=== PATIENT | female | born 1960 | race Caucasian/White ===

== ENCOUNTER → 2016-05-17 | Day surgery (SDC) | payer OTHER ==
[~2016-05-17] VITALS: Ht 157.5 cm; Wt 92.1 kg
[~2016-05-17] MED LIST: ACETAMINOPHEN/HYDROcodone 325 MG/5 MG TAB PO PRN; BUPIVACAINE HCL PF 0.5% 30 ML VIAL ONE; CEPH-460 PO; DO NOT ADM ANY ANTICOAGULANT DRUGS XX PRN; HYDR-3288 PO; INSULIN HUMAN REGULAR 1,000 UNITS/10 ML VIAL SQ PRN; LACTATED RINGER'S 1000 ML INJ 1,000 ML IV ONE; LACTATED RINGER'S 1000 ML IV SCH; LIDOCAINE 1%/EPINEPHrine 1:100,000 SOLN 30 ML VIAL ONE; LIDOCAINE HCL 2% 50 ML VIAL ONE; LISI-519 PO; MEPERIDINE HCL 50 MG/ML VIAL IM PRN; METOPROLOL TARTRATE 25 MG TAB PO PRN; MOBI7.5T PO; NEOSTIGMINE 3 MG/3 ML SYR IV ONE; ONDANSETRON HCL 4 MG/2 ML VIAL IV PUSH ONE; PHENYLEPH/NS 1000 MCG/10 ML SYR IV ONE; PRAV20TA2 PO; PROPOFOL 200 MG/20 ML AMP IV ONE; SODIUM CHLORID 0.9% 500 ML IV SCH; ceFAZolin 1,000 MG/NS 100 ML IV SCH; ePHEDrine/NS 25 MG/5 ML SYR IV ONE
[2016-05-17 07:40] VITALS: BP 175/91; PULSE 84; RESP 18; TEMP 98.6; O2SAT 98
[2016-05-17 08:07] LABS: AUTOMATED NEUTROPHIL # 2.3 TH/MM3 (1.8-7.7); BASOPHIL % 0.6 % (0.0-2.0); EOSINOPHIL # 0.1 TH/MM3 (0-0.4); EOSINOPHIL % 1.9 % (0.0-4.0); HEMO FLAGS DIFF FINAL; LYMPH % 29.1 % (9.0-44.0); LYMPHOCYTE # 1.1 TH/MM3 (1.0-4.8); MEAN CELL VOLUME 96.9 FL (80.0-100.0); MEAN CORPUSCULAR HGB CONC 34.1 % (32.0-36.0); MONO % 7.4 % (0.0-8.0); PLATELET COUNT 211 TH/MM3 (150-450); RED BLOOD COUNT 4.02 MIL/MM3 (4.00-5.30); RED CELL DISTRIBUTION WIDTH 14.2 % (11.6-17.2); WHITE BLOOD COUNT 3.7 TH/MM3 (4.0-11.0)
--- NOTE | 2016-05-17 09:00 | EKG ---
Date Performed: 05/17/2016 Time Performed: 08:17:00 PTAGE: 55 years EKG: Sinus rhythm NORMAL ECG COMPARED TO PRIOR ELECTROCARDIOGRAM, Rate has slowed. PREVIOUS TRACING : 10/07/2011 18.06 DOCTOR: Percy Khoury Interpretating Date/Time 05/17/2016 08:58:11
--- NOTE | 2016-05-17 11:22 | HHI.PR ---
Immediate Post Op Note Procedure Date: May 17, 2016 Pre Op Diagnosis: (1) TFCC (triangular fibrocartilage complex) injury Post Op Diagnosis: Surgeon: Gary Urias III Tractor Expert(s): jose Procedure: right wrist diagnostic arthroscopy with TFCC repair and thermal shrinkage; distal ulna debridement Anesthesia: General, Local Drains: None IVF Tourniquet time (min at mmHg) 74min @ 200mm Hg Patient to: PACU Patient Condition: Good Gary Urias III, MD May 17, 2016 11:22
[2016-05-17 12:44] VITALS: BP 129/61; PULSE 85; RESP 16; TEMP 98.1; O2SAT 96
--- NOTE | 2016-05-18 19:09 | MP ---
cc: GARY CURRIE III, M.D. DATE OF SURGERY: 05/17/2016 PREOPERATIVE DIAGNOSIS: Right wrist TFCC injury. POSTOPERATIVE DIAGNOSIS: Right wrist TFCC injury OPERATIVE PROCEDURE PERFORMED: 1. Right wrist diagnostic arthroscopy. 2. Right wrist TFCC repair. 3. Right wrist TFCC debridement and thermal shrinkage. SURGEON: Gary Hansen MD DESCRIPTION OF THE PROCEDURE IN DETAIL: The patient was brought to the operating room and placed supine on the operating table. After the correct site and side of surgery were verified by members of each team in the room multiple times including the patient and myself and after adequate preoperative markings and preoperative written consent were verified by everyone and after adequate preoperative time-out was performed to everyone's satisfaction and after adequate general anesthesia had been achieved, the right upper extremity was prepped and draped in the traditional sterile surgical fashion. Using 2% plain lidocaine, the wrist was distended it was placed into a wrist traction tower that was table-mounted. The limb was exsanguinated with an Margarito wrap and a highly placed well-padded axillary tourniquet was inflated to 200 mmHg for a total of 74 minutes. The 3/4 portal was entered with a small 0.5 cm incision longitudinally and then a blunt trocar to enter the wrist joint. Saline installation of the wrist was then accomplished distending the wrist. Examination revealed a moderate amount of inflammation and cartilaginous injury but no areas of exposed bone. Examination of the triangular fibrocartilage complex revealed a very large central defect that was very ratty in appearance and an ulnarly located small tear. The tear was then repaired using 2-0 PDS sutures in an outside-in fashion using the [employer] TFCC repair kit. This was tied through a 1 cm longitudinal incision ulnarly where the sutures were tied down to the wrist capsule and the dorsal sensory branch of the ulnar nerve was identified and protected so it was not caught within the suture. These sutures were cut at the level of the wrist capsule and pictures were obtained. The central portion of the TFCC which was completely perforated revealed the distal ulna rubbing against it and this was then debrided to lessen the impact from the ulna on the TFCC. An aggressive shaver was used to shorten the distal 1 mm of the protruding ulna. The edges of the central tear were also debrided and then a thermal shrinkage probe was used to smooth out the edges and tighten up the remainder of the TFCC in the usual fashion. Pictures were obtained and are on the chart. The fluid within the joint was then evacuated. The hand and arm were thoroughly cleansed and dried. The skin edges were all reapproximated using interrupted and running 4-0 nylon sutures. 0.5% plain Marcaine was infiltrated into the skin and into the radiocarpal joint for postoperative pain control. The axillary tourniquet was released with pressure being held around the wrist gently and the hand and all the fingers on the right became immediately soft, pink, warm and had brisk capillary refill of less than 2 seconds. There was no hematoma formation. There was no bleeding. Hemostasis was present. A well-padded, well-molded sugar-tong splint was made keeping the elbow and wrist immobilized and leaving only the thumb and fingers free. The patient was awakened from anesthesia and transported to the post-anesthesia care unit awake and in stable condition. At the end of the case, the sponge, needle and instrument counts were correct at the end of the case as reported by the nurses in the room. MD TD Noel III/EDITH /11:42 AM /6:47 PM
== END | disposition home or self-care (01) ==
LOC: HSDC 06:57
PROVIDERS: ATTEND Orthopaedic Surgery Hand Surgery
DX: S69.91XA Unspecified injury of right wrist, hand and finger(s), initial encounter (principal); I10 Essential (primary) hypertension
CPT/HCPCS: 01830; 29846; 85025; 93005; J0690; J2370; J2405; J2710; J3010; J7120